=== PATIENT | male | born 1945 | race African-American/Black ===

== ENCOUNTER 2018-08-15 17:58 | Inpatient (IN) | payer MEDICAID, MEDICARE ==
[~2018-08-15] VITALS: Ht 172.7 cm; Wt 71.2 kg
--- NOTE | 2018-08-15 17:58 | NUR ---
PT NOAH FROM [facility] FOR FAILED ATTEMPT OF F/C REINSERTION, PT C/O OF ABD PAIN, PT AAOX2-3, -SOB, PT MONITOR, VSS, PENDING MD LEO
--- NOTE | 2018-08-15 18:41 | NUR ---
URINAL AT BEDSIDE, UNABLE TO PROVIDE SAMPLE AT THIS TIME.
[2018-08-15 18:42] LABS: BASOPHILS # (AUTO) 0.1 /CMM (0.0-0.2); BASOPHILS % (AUTO) 0.8 % (0.0-2.0); EOSINOPHILS % (AUTO) 0.4 % (0.0-6.0); HEMATOCRIT 38 % (39-51); HEMOGLOBIN 12.4 g/dL (13.5-17.5); LYMPHOCYTES # (AUTO) 1.4 /CMM (0.8-4.8); LYMPHOCYTES % (AUTO) 7.3 % (20.0-44.0); MEAN CORPUSCULAR HGB CONC 33 g/dl (31.0-36.0); MEAN CORPUSCULAR VOLUME 84 fL (80-96); MONOCYTES # (AUTO) 2.6 /CMM (0.1-1.30); MONOCYTES % (AUTO) 13.8 % (2.0-12.0); NEUTROPHILS # (AUTO) 14.6 /CMM (1.8-8.9); NEUTROPHILS % (AUTO) 77.7 % (43.0-81.0); PLATELET COUNT (AUTO) 312 /CMM (150-450); RED BLOOD CELL COUNT(AUTO) 4.57 MIL/uL (4.5-6.0); WHITE BLOOD COUNT (AUTO) 18.8 K/uL (4.3-11.0)
[2018-08-15 18:46] LABS: CALCIUM, SERUM 8.9 mg/dL (8.5-10.1); CARBON DIOXIDE 21 mmol/L (21-32); CHLORIDE 105 mmol/L (98-107); CREATININE 2.9 mg/dL (0.6-1.3); GLUCOSE 124 mg/dL (74-106); POTASSIUM 4.6 mmol/L (3.5-5.1); SODIUM SERUM 137 mmol/L (136-145); UREA NITROGEN, BLOOD 39 mg/dL (7-18)
[2018-08-15 18:52] LABS: ALANINE AMINOTRANSFERASE 38 U/L (12-78); ALKALINE PHOSPHATASE 110 U/L (46-116); ASPARTATE AMINOTRANSFERASE 45 U/L (15-37); BILIRUBIN,DIRECT 0.1 mg/dL (0.0-0.2); BILIRUBIN,TOTAL 0.3 mg/dL (0.2-1.0); LIPASE 172 U/L (73-393); TOTAL PROTEIN, SERUM 8.4 g/dL (6.4-8.2)
[2018-08-15] MEDS ORDERED: IV NS 0.9% 500 ML BAG IV ONE (20:30)
--- NOTE | 2018-08-15 21:26 | NUR ---
REPORT GIVEN TO RICHAR CHAVEZ.
[2018-08-15] MEDS ORDERED: BACL10TA PO (21:28)
[2018-08-15] MEDS ORDERED: IBUP-1953 PO (21:28)
[2018-08-15] MEDS ORDERED: ACET-73 PO (21:29)
[2018-08-15] MEDS ORDERED: ACETAMINOPHEN 325 MG TABLET PO PRN (21:30)
[2018-08-15] MEDS ORDERED: ONDANSETRON HCL/PF 4 MG/2 ML VIAL IVP PRN (21:30)
[2018-08-15] MEDS ORDERED: Z GUARD REMEDY 2 OZ OINT TP PRN (21:30)
[2018-08-15] MEDS ORDERED: MAGNESIUM HYDROXIDE 30 ML UDC PO PRN (21:30)
[2018-08-15] MEDS ORDERED: HYDROCODONE/APAP 5/325MG 1 EACH TABLET PO PRN (21:30)
[2018-08-15] MEDS ORDERED: CARV12.52 PO (21:30)
[2018-08-15] MEDS ORDERED: APIX2.5T PO (21:30)
[2018-08-15] MEDS ORDERED: MAG HYDROX/AL HYDROX/SIMETH 30 ML UDC PO PRN (21:30)
[2018-08-15] MEDS ORDERED: TAMS-12 PO (21:31)
[2018-08-15] MEDS ORDERED: LATA2.5D2 EACHEYE (21:31)
[2018-08-15] MEDS ORDERED: FINA5TAB3 PO (21:31)
[2018-08-15 21:32] LABS: APPEARANCE,URINE Cloudy (CLEAR); BILIRUBIN,URINE Negative (NEGATIVE); BLOOD, URINE Large Ery/uL (NEGATIVE); COLOR,URINE Dark (YELLOW); KETONES,URINE Negative (NEGATIVE); LEUKOCYTE ESTERASE ,URINE Small (NEGATIVE); NITRITE, URINE Positive (NEGATIVE); PROTEIN,URINE 100 mg/dl (NEGATIVE); UGLUCOSE Negative (NEGATIVE); UROBILINOGEN,URINE 0.2 EU/dL (0.2)
[2018-08-15] MEDS ORDERED: AMIO200T4 PO (21:32)
[2018-08-15] MEDS ORDERED: ASPI-605 PO (21:32)
[2018-08-15] MEDS ORDERED: DORZ10DR13 EACHEYE (21:32)
[2018-08-15 21:45] VITALS: BP 104/68
--- NOTE | 2018-08-15 21:45 | NUR ---
TELE/RN NOTES NEW ADMITTED PATIENT IS A 73 A[place]INESE MALE [facility] ER FOR ABDOMINAL PAIN DUE TO UNABLE TO INSERT HAHN, UPON ADMISSION DX OF AMS AND ARF. PATIENT ALERT, ORIENTED X3M RESPIRATIONS EVEN AND UNLABORED, SKIN WARM TO TOUCH AND INTACT, ABLE TO AMBULATE WITH SUPERVISION, DENIES PAIN, ON TELE AT NORMAL SINUS 65. USES URINAL, LEFT HAND IV GAUGE 20 PATENT, ADMITTING MD IS MD SHANE , POLST RECEIVED. TO CLARIFY THE NOTED CODE ORDER, BELONGINGS CHECK AND PRECIOUS OF $20 WAS KEPT IN NIGHT LOCKER FOR SAFETY PER PATIENT REQUEST, VITAL SIGN CHECK, BODY WEIGHT AT 157. WILL MONITOR AND PROVIDE CARE.
[2018-08-15 21:54] LABS: BACTERIA,URINE Few /HPF (None Seen); RBC,URINE TOO NUMEROUS TO COUN /HPF (0-2); SQUAMOUS EPITHELIAL CELL,UR Rare /HPF (None Seen); WBC,URINE TOO NUMEROUS TO COUN /HPF (0-3)
[2018-08-15 22:00] VITALS: BP 104/68
[2018-08-15] MEDS ORDERED: MEROPENEM 500 MG VIAL IV ONE (22:46)
[2018-08-15] MEDS: MEROPENEM 500 MG in IV NS 0.9% 50 ML IV SCH (22:55)
[2018-08-16] VITALS (7 sets, daily range): BP systolic 98–136; BP diastolic 60–91
[2018-08-16 00:23] LABS: THYROID STIMULATING HORMONE 2.982 uIU/mL (0.358-3.74)
[2018-08-16] MEDS: IV NS 0.9% 1,000 ML IV PRN ×2 (04:08→20:33)
--- NOTE | 2018-08-16 06:31 | NUR ---
309-2 PATIENT ABLE TO SLEEP DURING THE NIGT, RESPIRATIONS EVEN AND UNLABORED BED LOCKED,CALL LIGHTS WITHIN RANGE. DENIES PAIN.WILL CONTINUE TO MONITOR.
[2018-08-16 06:33] LABS: BASOPHILS # (AUTO) 0.1 /CMM (0.0-0.2); BASOPHILS % (AUTO) 0.7 % (0.0-2.0); EOSINOPHILS % (AUTO) 1.6 % (0.0-6.0); HEMATOCRIT 37 % (39-51); HEMOGLOBIN 11.9 g/dL (13.5-17.5); LYMPHOCYTES # (AUTO) 1.3 /CMM (0.8-4.8); LYMPHOCYTES % (AUTO) 9.8 % (20.0-44.0); MEAN CORPUSCULAR HGB CONC 33 g/dl (31.0-36.0); MEAN CORPUSCULAR VOLUME 84 fL (80-96); MONOCYTES # (AUTO) 2.4 /CMM (0.1-1.30); MONOCYTES % (AUTO) 17.9 % (2.0-12.0); NEUTROPHILS # (AUTO) 9.4 /CMM (1.8-8.9); PLATELET COUNT (AUTO) 297 /CMM (150-450); RED BLOOD CELL COUNT(AUTO) 4.37 MIL/uL (4.5-6.0); WHITE BLOOD COUNT (AUTO) 13.4 K/uL (4.3-11.0)
[2018-08-16 06:38] LABS: ALANINE AMINOTRANSFERASE 37 U/L (12-78); ALBUMIN 2.8 g/dL (3.4-5.0); ALKALINE PHOSPHATASE 102 U/L (46-116); ASPARTATE AMINOTRANSFERASE 37 U/L (15-37); BILIRUBIN,DIRECT 0.1 mg/dL (0.0-0.2); BILIRUBIN,TOTAL 0.3 mg/dL (0.2-1.0); CALCIUM, SERUM 8.8 mg/dL (8.5-10.1); CARBON DIOXIDE 22 mmol/L (21-32); CHLORIDE 106 mmol/L (98-107); CREATININE 3.1 mg/dL (0.6-1.3); GLUCOSE 104 mg/dL (74-106); MAGNESIUM 2.2 mg/dL (1.8-2.4); PHOSPHORUS 4.7 mg/dL (2.5-4.9); POTASSIUM 4.2 mmol/L (3.5-5.1); SODIUM SERUM 141 mmol/L (136-145); TOTAL PROTEIN, SERUM 7.8 g/dL (6.4-8.2); UREA NITROGEN, BLOOD 39 mg/dL (7-18)
[2018-08-16 06:46] LABS: CHOLESTEROL 126 mg/dL (<200); HDL CHOLESTEROL 30 mg/dL (40-60); LDL 75 mg/dL (0-99); THYROID STIMULATING HORMONE 2.184 uIU/mL (0.358-3.74); TRIGLYCERIDES 118 mg/dL (30-150)
--- NOTE | 2018-08-16 07:33 | NUR ---
MINING HELPER NOTES OPENING Patient received on room air, no sob noted. Patient a/o x4, patient denies pain at this time. Patient's left hand #20 IV remains free flowing. Patient lying down comfortably on his bed. Bed at the lowest setting, call light within reach.
[2018-08-16] MEDS ORDERED: ACET-868 PO ×2 (09:38)
[2018-08-16] MEDS: MEROPENEM 500 MG in IV NS 0.9% 50 ML IV SCH ×2 (11:19→22:06)
--- NOTE | 2018-08-16 18:08 | NUR ---
SAS ARCHITECT CLOSING NOTES Patient remains on room air, no sob noted. Patient denies pain at this time. A/O x4, able to walk to the restroom by himself. Good gait noted. Left hand #20 infusing with 75 mL per hour with NS. Bed at the lowest setting, call light within reach. Will give report to RN JOSE J for BRANDO bedside.
--- NOTE | 2018-08-16 20:06 | NUR ---
TELE/RN ON INITIAL ROUND [id number], PATIENT WAS AWAKE, ALERT, ORIENTED, COMFORTABLE, NO C/O PAIN, NO DISTRESS NOTED, CALL LIGHT IN REACH. WILL MONITOR.
[2018-08-17 04:27] VITALS: BP 123/53
--- NOTE | 2018-08-17 06:42 | NUR ---
TELE/RN PATIENT IS AWAKE, COMFORTABLE, NO C/O PAIN, NO DISTRESS NOTED, ALL NEEDS ATTENDED AT THIS TIME, WILL CONTINUE TO MONITOR.
[2018-08-17 08:00] VITALS: BP 117/74
--- NOTE | 2018-08-17 08:00 | NUR ---
tele fiberglass bonding machine tender: initial assessment received pt in bed awake, a/ox3. no c/o pain or any discomfort. pt expressed wanting to go home today, awaiting md terrazas. instructed to call for assistance. will continue to monitor.
--- NOTE | 2018-08-17 08:50 | NUR ---
m/s certified solid waste facility operator: notes chante finnegan ([facility]) here and reminded him re: home meds needs to be reconciled.
[2018-08-17] MEDS: MEROPENEM 500 MG in IV NS 0.9% 50 ML IV SCH (09:41)
--- NOTE | 2018-08-17 10:30 | NUR ---
tele supervisor sewing department: md visit seen and examined by chante ([facility]) with order to d'c back to sn[facility] today. pt aware and verbalized understanding. case management making arrangement.
--- NOTE | 2018-08-17 11:00 | NUR ---
tele die stamper: notes tele removed.
[2018-08-17] MEDS: IV NS 0.9% 1,000 ML IV PRN ×2 (11:30→22:53)
--- NOTE | 2018-08-17 11:55 | NUR ---
m/s tank cleaning supervisor: notes informed pt that his d'c planning today was cancelled due to bun/creatine results. pt for d'c planning for tomorrow.
--- NOTE | 2018-08-17 12:30 | NUR ---
m/s machine stripper: nephro consult seen by dr. carrera.
[2018-08-17] MEDS ORDERED: ACETAMINOPHEN 325 MG TABLET PO PRN ×2 (14:00)
[2018-08-17] MEDS ORDERED: IBUPROFEN 400 MG TABLET PO PRN (14:00)
--- NOTE | 2018-08-17 14:00 | NUR ---
m/s power shovel engineer: notes noted urine culture result: staphylococcus aureus. chante finnegan ([facility]) notified and made aware with order for id consult.
[2018-08-17] MEDS: FINASTERIDE (5 MG) 5 MG TABLET PO SCH (14:46)
[2018-08-17] MEDS: TAMSULOSIN 0.4 MG CAP.SR.24H PO SCH (14:47)
[2018-08-17] MEDS: ASPIRIN EC 81 MG TABLET.DR PO SCH (14:47)
[2018-08-17] MEDS: AMIODARONE HCL 200 MG TABLET PO SCH (14:49)
--- NOTE | 2018-08-17 15:00 | NUR ---
m/s helper metal hanging: id consult seen by anuradha ([facility]) at this time.
[2018-08-17 16:00] VITALS: BP 148/85
[2018-08-17] MEDS: TIMOLOL MAL/DORZOLAM HCL OPHTH 10 ML BOTTLE EACHEYE SCH (16:34)
[2018-08-17] MEDS: BACLOFEN (10 MG) 10 MG TABLET PO SCH (16:34)
[2018-08-17] MEDS: CARVEDILOL 12.5 MG TABLET PO SCH (16:34)
--- NOTE | 2018-08-17 17:00 | NUR ---
m/s dry cans back tender: notes resting comfortable in bed with no distress noted. will monitor.
[2018-08-17 17:19] LABS: BASOPHILS # (AUTO) 0.1 /CMM (0.0-0.2); BASOPHILS % (AUTO) 0.9 % (0.0-2.0); EOSINOPHILS % (AUTO) 2.9 % (0.0-6.0); HEMATOCRIT 36 % (39-51); HEMOGLOBIN 11.8 g/dL (13.5-17.5); LYMPHOCYTES # (AUTO) 1.8 /CMM (0.8-4.8); LYMPHOCYTES % (AUTO) 23.9 % (20.0-44.0); MEAN CORPUSCULAR HGB CONC 32 g/dl (31.0-36.0); MEAN CORPUSCULAR VOLUME 84 fL (80-96); MONOCYTES # (AUTO) 1.1 /CMM (0.1-1.30); MONOCYTES % (AUTO) 14.8 % (2.0-12.0); NEUTROPHILS # (AUTO) 4.4 /CMM (1.8-8.9); NEUTROPHILS % (AUTO) 57.5 % (43.0-81.0); PLATELET COUNT (AUTO) 360 /CMM (150-450); RED BLOOD CELL COUNT(AUTO) 4.36 MIL/uL (4.5-6.0); WHITE BLOOD COUNT (AUTO) 7.7 K/uL (4.3-11.0)
[2018-08-17] MEDS: APIXABAN 2.5 MG TABLET PO SCH (17:39)
[2018-08-17] MEDS ORDERED: FEE PK DOSING 1 MIN EA MC ONE (17:54)
[2018-08-17] MEDS ORDERED: VANCOMYCIN 1 GM in IV D5W 250ml IV ONE (18:00)
--- NOTE | 2018-08-17 19:00 | NUR ---
m/s bisque finisher: notes noted iv to left hand, leaking, removed. inserted new one to right hand, gauge #22. report given to perla (rn) for continuity of care.
[2018-08-17 20:00] VITALS: BP 131/76
--- NOTE | 2018-08-17 20:10 | NUR ---
MS/RN ON INITIAL SHIFT ROUND AT 1930, PATIENT WAS IN BED AOX4, COMFORTABLE, NO C/O PAIN, NO DISTRESS NOTED, CALL LIGHT IN REACH. WILL MONITOR.
[2018-08-17] MEDS: LATANOPROST EYE DROP 0.005% 2.5 ML BOTTLE EACHEYE SCH (21:12)
--- NOTE | 2018-08-18 00:20 | NUR ---
MS/RN PATIENT IS SLEEPING AT THIS TIME, AROUSABLE, APPEAR COMFORTABLE, NO SIGNS OF DISTRESS NOTED, CALL LIGHT IN REACH. WILL CONTINUE TO MONITOR.
--- NOTE | 2018-08-18 06:38 | NUR ---
MS/RN PATIENT IS SLEEPING AT THIS TIME, APPEAR COMFORTABLE, NO DISTRESS NOTED, CALL LIGHT IN REACH. ALL NEEDS ATTENDED AT THIS TIME, WILL CONTINUE TO MONITOR.
[2018-08-18] MEDS: IV NS 0.9% 1,000 ML IV PRN ×3 (06:40→23:01)
[2018-08-18 08:00] VITALS: BP 141/81
--- NOTE | 2018-08-18 08:02 | NUR ---
RN MS OPENING NOTES Patient remains on room air, no sob noted, patient lying down comfortably on bed. IV fluid flowing unobstructed at left hand #20. Patient remains a/o x4 and denies pain at this time. Bed at the lowest setting, call light within reach.
[2018-08-18] MEDS: TAMSULOSIN 0.4 MG CAP.SR.24H PO SCH (08:23)
[2018-08-18] MEDS: ASPIRIN EC 81 MG TABLET.DR PO SCH (08:23)
[2018-08-18] MEDS: AMIODARONE HCL 200 MG TABLET PO SCH (08:23)
[2018-08-18] MEDS: FINASTERIDE (5 MG) 5 MG TABLET PO SCH (08:27)
[2018-08-18] MEDS: TIMOLOL MAL/DORZOLAM HCL OPHTH 10 ML BOTTLE EACHEYE SCH ×2 (08:27→16:58)
[2018-08-18] MEDS: CARVEDILOL 12.5 MG TABLET PO SCH ×2 (08:27→16:58)
[2018-08-18] MEDS: BACLOFEN (10 MG) 10 MG TABLET PO SCH ×2 (08:27→16:58)
[2018-08-18] MEDS: APIXABAN 2.5 MG TABLET PO SCH ×2 (08:28→16:59)
[2018-08-18 08:46] LABS: CALCIUM, SERUM 8.2 mg/dL (8.5-10.1); CARBON DIOXIDE 19 mmol/L (21-32); CHLORIDE 108 mmol/L (98-107); CREATININE 1.4 mg/dL (0.6-1.3); GLUCOSE 92 mg/dL (74-106); POTASSIUM 4.5 mmol/L (3.5-5.1); SODIUM SERUM 140 mmol/L (136-145); UREA NITROGEN, BLOOD 18 mg/dL (7-18)
[2018-08-18 16:00] VITALS: BP 127/76
--- NOTE | 2018-08-18 17:10 | NUR ---
RN MS NOTES Patient positive for MRSA via urine, per [facility]'s lab.
--- NOTE | 2018-08-18 17:54 | NUR ---
RN MS CLOSING NOTES Patient remains on mi air, no sob noted. Patient remains a/o x3, able to ambulate to the restroom. Remains with left hand #20, 125 mL per hour of normal saline. patient's medication given, no concerns from patient. Bed at the lowest setting, call light within reach, will give report to NOC rn for BRANDO bedside.
--- NOTE | 2018-08-18 19:30 | NUR ---
MS/RN RECEIVE PATIENT AWAKE, ALERT, ORIENTED, COMFORTABLE, NO C/O PAIN, NO DISTRESS NOTED, CALL LIGHT IN REACH. WILL MONITOR.
[2018-08-18 20:00] VITALS: BP 120/71
[2018-08-18] MEDS: VANCOMYCIN 1 GM in IV D5W 250 ML IV SCH (21:52)
[2018-08-18] MEDS: LATANOPROST EYE DROP 0.005% 2.5 ML BOTTLE EACHEYE SCH (21:59)
--- NOTE | 2018-08-18 23:00 | NUR ---
MS RN NOTES Received report from AKTHY Waggoner for continuity of care. Patient sleeping in bed, comfortable. Breathing even and unlabored. Not in any distress. Peripheral IV infusing at 125mL/hr. Safety measures in place. Will continue to monitor accordingly
--- NOTE | 2018-08-18 23:05 | NUR ---
MS/RN PATIENT IS AWAKE, NO CHANGE IN CONDITION. ENDORSED TO NEXT RN FOR CONTINUITY OF CARE.
[2018-08-19] MEDS ORDERED: VANCOMYCIN HCL 0.75 GM in IV D5W 250 ML IV SCH (06:00)
[2018-08-19] MEDS: IV NS 0.9% 1,000 ML IV PRN ×2 (06:01→16:24)
[2018-08-19 06:23] LABS: BASOPHILS # (AUTO) 0.1 /CMM (0.0-0.2); BASOPHILS % (AUTO) 0.8 % (0.0-2.0); EOSINOPHILS % (AUTO) 2.3 % (0.0-6.0); HEMATOCRIT 35 % (39-51); HEMOGLOBIN 11.4 g/dL (13.5-17.5); LYMPHOCYTES # (AUTO) 1.8 /CMM (0.8-4.8); LYMPHOCYTES % (AUTO) 19.7 % (20.0-44.0); MEAN CORPUSCULAR HGB CONC 33 g/dl (31.0-36.0); MEAN CORPUSCULAR VOLUME 83 fL (80-96); MONOCYTES % (AUTO) 10.7 % (2.0-12.0); NEUTROPHILS # (AUTO) 6.2 /CMM (1.8-8.9); NEUTROPHILS % (AUTO) 66.5 % (43.0-81.0); PLATELET COUNT (AUTO) 383 /CMM (150-450); RED BLOOD CELL COUNT(AUTO) 4.23 MIL/uL (4.5-6.0); WHITE BLOOD COUNT (AUTO) 9.4 K/uL (4.3-11.0)
[2018-08-19 06:40] LABS: CALCIUM, SERUM 8.4 mg/dL (8.5-10.1); CARBON DIOXIDE 21 mmol/L (21-32); CHLORIDE 108 mmol/L (98-107); CREATININE 1.3 mg/dL (0.6-1.3); GLUCOSE 95 mg/dL (74-106); SODIUM SERUM 142 mmol/L (136-145); UREA NITROGEN, BLOOD 14 mg/dL (7-18)
--- NOTE | 2018-08-19 06:50 | NUR ---
MS RN CLOSING NOTES Patient in bed, sleeping but easily woken. Breathing even and unlabored. Not in any distress, on room air. No complaints at this time. Peripheral IV infusing at 125mL/hr. No acute changes overnight. All needs attended. Safety measures in place. Will endorse BRANDO to oncoming RN
--- NOTE | 2018-08-19 07:50 | NUR ---
M/S RN NOTES PATIENT AWAKE IN BED, NO RESPIRATORY DISTRESS NOTED, NO C/O PAIN AT THIS TIME. SKIN WARM TO TOUCH. IVF OF NS INFUSING AT 125ML/HR ON THE RT HAND #20G, INTACT AND PATENT, NO REDNESS, NO INFILTRATION NOTED. PATIENT'S NEEDS ATTENDED, BED ON LOWEST LOCKED POSITION, CALL LIGHT WITHIN REACH. WILL CONTINUE TO MONITOR.
[2018-08-19 08:30] VITALS: BP 146/86
[2018-08-19] MEDS: BACLOFEN (10 MG) 10 MG TABLET PO SCH ×2 (09:38→17:35)
[2018-08-19] MEDS: TAMSULOSIN 0.4 MG CAP.SR.24H PO SCH (09:38)
[2018-08-19] MEDS: ASPIRIN EC 81 MG TABLET.DR PO SCH (09:38)
[2018-08-19] MEDS: FINASTERIDE (5 MG) 5 MG TABLET PO SCH (09:39)
[2018-08-19] MEDS: AMIODARONE HCL 200 MG TABLET PO SCH (09:39)
[2018-08-19] MEDS: CARVEDILOL 12.5 MG TABLET PO SCH ×2 (09:39→17:36)
[2018-08-19] MEDS: APIXABAN 2.5 MG TABLET PO SCH ×2 (09:59→17:39)
[2018-08-19] MEDS: TIMOLOL MAL/DORZOLAM HCL OPHTH 10 ML BOTTLE EACHEYE SCH ×2 (09:59→18:10)
[2018-08-19 16:00] VITALS: BP 143/84
--- NOTE | 2018-08-19 19:00 | NUR ---
M/S RN NOTES PATIENT AWAKE, LYING IN BED, NO RESPIRATORY DISTRESS NOTED, NO C/O PAIN AT THIS TIME. SKIN WARM TO TOUCH. IVF OF NS INFUSING AT 125ML/HR ON THE RT HAND #20G, INTACT AND PATENT. PATIENT'S NEEDS ATTENDED. BED ON LOWEST LOCKED POSITION, CALL LIGHT WITHIN REACH. WILL ENDORSE TO ONCOMING NURSE.
--- NOTE | 2018-08-19 19:05 | NUR ---
RN MS OPENING NOTES RECEIVED PATIENT IN BED AWAKE ALERT AND ORIENTED X 4, RESPIRATIONS EVEN AND UNLABORED WITH EQUAL RISE AND FALL OF CHEST, DENIES ANY PAIN OR DISCOMFORT AT THIS TIME, URINAL AT BEDSIDE WITHIN REACH, IV SITE TO RIGHT HAND #20G INTACT AND PATENT, IVF RUNNING ORDERED, NO REDNESS, NO INFILTRATION PRESENT, ORIENTED TO STAFF AND CALL LIGHT AND KEPT WITHIN REACH, SAFETY PRECAUTIONS IN PLACE, LOW BED AND LOCKED, MADE PATIENT AWARE OF MONDAY PICTURES, ASKED PATIENT IS HE HAS ANY WOUND STATES " NO", OFFERED IF I CAN DO BODY ASSESSMENT , REFUSED STATES " I DONT HAVE ANY WOUNDS", REFERRED BACK TO CHART NO PREVIOUS PICTURES NOTED, ALL NEEDS ATTENDED AT THIS TIME, FLUIDS AND BLANKETS OFFERED, WILL CONTINUE TO MONITOR AND ATTEND TO NEEDS.
[2018-08-19 19:58] VITALS: BP 130/77
[2018-08-19 20:00] VITALS: BP 130/77
[2018-08-19] MEDS: VANCOMYCIN 1 GM in IV D5W 250 ML IV SCH (21:26)
[2018-08-19] MEDS: LATANOPROST EYE DROP 0.005% 2.5 ML BOTTLE EACHEYE SCH (21:27)
[2018-08-20] MEDS: IV NS 0.9% 1,000 ML IV PRN ×2 (03:05→16:35)
[2018-08-20 06:49] LABS: CALCIUM, SERUM 8.3 mg/dL (8.5-10.1); CARBON DIOXIDE 21 mmol/L (21-32); CHLORIDE 109 mmol/L (98-107); CREATININE 1.2 mg/dL (0.6-1.3); GLUCOSE 99 mg/dL (74-106); SODIUM SERUM 140 mmol/L (136-145); UREA NITROGEN, BLOOD 11 mg/dL (7-18)
--- NOTE | 2018-08-20 07:00 | NUR ---
RN MS CLOSING NOTES PATIENT IN BED AWAKE ALERT AND ORIENTED X 4, RESPIRATIONS EVEN AND UNLABORED WITH EQUAL RISE AND FALL OF CHEST, DENIES ANY PAIN OR DISCOMFORT AT THIS TIME, URINAL AT BEDSIDE WITHIN REACH, IV SITE TO LEFT FA #20G INTACT AND PATENT, IVF RUNNING ORDERED, NO REDNESS, NO INFILTRATION PRESENT, CALL LIGHT KEPT WITHIN REACH, SAFETY PRECAUTIONS IN PLACE, LOW BED AND LOCKED, ALL NEEDS ATTENDED AT THIS TIME, FLUIDS AND BLANKETS OFFERED, WILL CONTINUE TO MONITOR AND ATTEND TO NEEDS AND ENDORSE TO NEXT SHIFT.
--- NOTE | 2018-08-20 07:20 | NUR ---
MS/RN OPENING NOTE THE PATIENT IS RECEIVED IN BED. ALERT AND ORIENTED TO SELF. ABLE TO MAKE NEEDS KNOWN WITH CLEAR SPEECH. IN ROOM AIR AND DENIES SOB. RESPIRATION REGULAR AND UNLABORED. DENIES PAIN. THE PATIENT IN NO APPARENT DISTRESS. RFA G 20 PATENT AND NORMAL SALINE INFUSING AT 125ML/HR AND NO S/S INFILTRATION NOTED. BED LOW AND LOCKED. SIDE RAILS UP X3. CALL LIGHT WITHIN REACH. WILL CONTINUE TO MONITOR.
[2018-08-20 08:00] VITALS: BP 134/78
[2018-08-20 08:39] VITALS: BP_SYST 134; BP_SYST 143; BP_DIAS 63; BP_DIAS 78
[2018-08-20] MEDS: FINASTERIDE (5 MG) 5 MG TABLET PO SCH (08:57)
[2018-08-20] MEDS: BACLOFEN (10 MG) 10 MG TABLET PO SCH ×2 (08:57→16:35)
[2018-08-20] MEDS: ASPIRIN EC 81 MG TABLET.DR PO SCH (08:57)
[2018-08-20] MEDS: TAMSULOSIN 0.4 MG CAP.SR.24H PO SCH (08:57)
[2018-08-20] MEDS: AMIODARONE HCL 200 MG TABLET PO SCH (08:58)
[2018-08-20] MEDS: TIMOLOL MAL/DORZOLAM HCL OPHTH 10 ML BOTTLE EACHEYE SCH ×2 (08:59→16:36)
[2018-08-20] MEDS: APIXABAN 2.5 MG TABLET PO SCH ×2 (09:32→18:31)
[2018-08-20] MEDS: CARVEDILOL 12.5 MG TABLET PO SCH ×2 (09:32→16:36)
[2018-08-20] MEDS: ACETYLCYSTEINE 10% 3,000 MG/30 ML VIAL PO SCH ×2 (11:40→16:36)
--- NOTE | 2018-08-20 13:00 | NUR ---
MS/RN NOTE RADIOLOGY DEPT IS MADE AWARE THAT CONSENT FOR CT IS SIGNED.
[2018-08-20 16:05] VITALS: BP 140/76
--- NOTE | 2018-08-20 18:37 | NUR ---
MS/RN NOTE THE PATIENT ALERT AND ORIENTED X1. ABLE TO MAKE NEEDS KNOWN VERBALLY. DENIES PAIN. IN ROOM AIR AND SATURATION IS AT 97%. DENIES SOB. RESPIRATION REGULAR AND UNLABORED. RFA G 20 PATENT AND NORMAL SALINE INFUSING AT 125 ML/HR AND NO S/S INFILTRATION NOTED. BED LOW AND LOCKED. SIDE RAILS UP X3. CALL LIGHT WITHIN REACH. WILL ENDORSE TO MANAGER FIELD INVESTIGATIONS.
--- NOTE | 2018-08-20 19:10 | NUR ---
MS/RN NOTES RECEIVED PT. LYING IN BED RESTING. PT. IS EASILY AROUSABLE TO NAME. PT. IS AWAKE, ALERT AND ORIENTED X 1-2. BREATHING EVEN AND UNLABORED ON ROOM AIR. NO SOB, RESPIRATORY DISTRESS OR COMPLAINTS OF PAIN NOTED AT THIS TIME. PT. WITH RIGHT FOREARM 20 GAUGE PERIPHERAL IV PRESENT, PATENT AND INTACT ADMINISTERING TO PT. IV NS @ 125 ML/HR. BED LOCKED AND IN LOWEST POSITION, SIDE RAILS UP X3, BED ALARM ON, CALL LIGHT WITHIN REACH, WILL CONTINUE TO MONITOR.
[2018-08-20 20:13] VITALS: BP 133/75
[2018-08-20] MEDS: LATANOPROST EYE DROP 0.005% 2.5 ML BOTTLE EACHEYE SCH (21:28)
[2018-08-20] MEDS: VANCOMYCIN 1 GM in IV D5W 250 ML IV SCH (21:28)
[2018-08-21] MEDS: IV NS 0.9% 1,000 ML IV PRN ×2 (03:13→22:50)
--- NOTE | 2018-08-21 06:39 | NUR ---
MS/RN NOTES PT. IS LYING IN BED RESTING. BREATHING EVEN AND UNLABORED ON ROOM AIR. NO SOB, RESPIRATORY DISTRESS OR COMPLAINTS OF PAIN NOTED AT THIS TIME. PT. WITH RIGHT FOREARM 20 GAUGE PERIPHERAL IV PRESENT, PATENT AND INTACT ADMINISTERING TO PT. IV NS @ 125 ML/HR. ALL PT. NEEDS MET. PT. ENCOURAGED AND ASSISTED TO TURN AND REPOSITION Q2H AND NEEDED. BED LOCKED AND IN LOWEST POSITION, SIDE RAILS UP X3, BED ALARM ON, CALL LIGHT WITHIN REACH, WILL ENDORSE TO DAYSHIFT NURSE FOR CONTINUITY OF CARE.
[2018-08-21 08:00] VITALS: BP 153/89
--- NOTE | 2018-08-21 08:00 | NUR ---
ms rn received on bed, awake,alert, not in any form of distress, respirations even and unlabored,no sob noted, lungs are diminish, abdomen soft,positive bowel sounds, denies pain at this time,all needs attended.
[2018-08-21 08:04] LABS: BASOPHILS % (AUTO) 0.3 % (0.0-2.0); EOSINOPHILS % (AUTO) 2.2 % (0.0-6.0); HEMATOCRIT 35 % (39-51); HEMOGLOBIN 11.5 g/dL (13.5-17.5); LYMPHOCYTES # (AUTO) 1.8 /CMM (0.8-4.8); LYMPHOCYTES % (AUTO) 20.4 % (20.0-44.0); MEAN CORPUSCULAR HGB CONC 33 g/dl (31.0-36.0); MEAN CORPUSCULAR VOLUME 83 fL (80-96); MONOCYTES % (AUTO) 10.8 % (2.0-12.0); NEUTROPHILS # (AUTO) 5.9 /CMM (1.8-8.9); NEUTROPHILS % (AUTO) 66.3 % (43.0-81.0); PLATELET COUNT (AUTO) 408 /CMM (150-450); RED BLOOD CELL COUNT(AUTO) 4.22 MIL/uL (4.5-6.0); WHITE BLOOD COUNT (AUTO) 8.9 K/uL (4.3-11.0)
[2018-08-21 08:17] LABS: CALCIUM, SERUM 8.2 mg/dL (8.5-10.1); CARBON DIOXIDE 20 mmol/L (21-32); CHLORIDE 108 mmol/L (98-107); CREATININE 1.3 mg/dL (0.6-1.3); GLUCOSE 95 mg/dL (74-106); POTASSIUM 3.8 mmol/L (3.5-5.1); SODIUM SERUM 140 mmol/L (136-145); UREA NITROGEN, BLOOD 10 mg/dL (7-18)
[2018-08-21 08:28] LABS: IRON, SERUM 32 ug/dl (50-175); TOTAL IRON BINDING CAPACITY 224 ug/dl (250-450)
[2018-08-21 08:32] LABS: FERRITIN 93 ng/mL (8-388)
[2018-08-21] MEDS: CARVEDILOL 12.5 MG TABLET PO SCH ×2 (09:00→18:30)
[2018-08-21] MEDS: ACETYLCYSTEINE 10% 3,000 MG/30 ML VIAL PO SCH ×2 (09:00→18:30)
[2018-08-21] MEDS: APIXABAN 2.5 MG TABLET PO SCH ×2 (09:00→18:31)
[2018-08-21] MEDS: TIMOLOL MAL/DORZOLAM HCL OPHTH 10 ML BOTTLE EACHEYE SCH ×2 (09:00→18:28)
[2018-08-21] MEDS: BACLOFEN (10 MG) 10 MG TABLET PO SCH ×2 (09:00→18:28)
--- NOTE | 2018-08-21 09:00 | NUR ---
ms rn held meds at this time, patient will have ct head, abdomen, pelvis w/ contras.
--- NOTE | 2018-08-21 11:00 | NUR ---
MS RN WENT DOWN FOR CTA
[2018-08-21] MEDS ORDERED: IV NS 0.9% 250 ML IV ONE (11:40)
[2018-08-21] MEDS ORDERED: IOHEXOL-300 100 ML VIAL IV ONE (11:40)
[2018-08-21] MEDS ORDERED: CT SWABBABLE VALVE TRANS SET 1 EA INFUS.SET MC ONE (11:40)
[2018-08-21] MEDS: AMIODARONE HCL 200 MG TABLET PO SCH (12:08)
[2018-08-21] MEDS: FINASTERIDE (5 MG) 5 MG TABLET PO SCH (12:08)
[2018-08-21] MEDS: TAMSULOSIN 0.4 MG CAP.SR.24H PO SCH (12:08)
[2018-08-21] MEDS: ASPIRIN EC 81 MG TABLET.DR PO SCH (12:08)
[2018-08-21 16:00] VITALS: BP 153/80
[2018-08-21] MEDS: VANCOMYCIN 1 GM in IV D5W 250 ML IV SCH (18:29)
--- NOTE | 2018-08-21 19:00 | NUR ---
MS RN ON BED, ,NO DISTRESS NOTED.
[2018-08-21 20:00] VITALS: BP 135/81
--- NOTE | 2018-08-21 20:00 | NUR ---
MS/RN OPENING NOTES RECEIVED PATIENT IN BED, AWAKE. RESTING COMFORTABLY IN BED, HAD SNACKS, AND FLUIDS, RESPIRATIONS EVEN AND UNLABORED, ABLE TO TURN AND REPOSITION INDEPENDENTLY , INSTRUCTED TO CALL FOR ASSISTANCE FOR SAFETY. BED LOCKED, CALL LIGHTS WITHIN REACH, WILL MONITOR. RECEIVED ENDORSEMENT FROM AM RN FOR BRANDO.
[2018-08-21] MEDS: LATANOPROST EYE DROP 0.005% 2.5 ML BOTTLE EACHEYE SCH (21:12)
--- NOTE | 2018-08-22 06:03 | NUR ---
MS/RN NOTES PATIENT IV SITE LEAKING, REMOVED AND PATIENT REFUSED TO HAVE IT REINSERTED AT THIS TIME WILL FOLLOW UP IN AM, PATIENT REPORTED THAT HE WILL SOON BE DISCHARGE TO HOME TODAY AND BEEN DRINKING ENOUGH FLUIDS.
--- NOTE | 2018-08-22 07:29 | NUR ---
309-2 MS/RN NOTES PATIENT ON CONTACT ISOLATION, ABLE TO DO SELF CARE, ALERT, ORIENTED X3, OFFERED AND PROVIDED FLUIDS AND SNACKS, ABLE TO SLEEP DURING THE NIGHT, COMPLIANT TO CARE, BED LOCKED, CALL LIGHTS WITHIN REACH, WILL MONITOR AND ENDORSE TO AM RN FOR BRANDO.
[2018-08-22 08:00] VITALS: BP 143/77
--- NOTE | 2018-08-22 08:00 | NUR ---
MS RN RECEIVED ON BED, AWAKE,ALERT,ORIENTED X2,NOT IN ANY FORM OF DISTRESS, [id number] EVEN AND UNLABORED,NO SOB NOTED, LUNGS ARE CLEAR,ABDOMEN SOFT,POSITIVE BOWEL SOUNDS,DENIES PAIN AT THIS TIME, WILL MONITOR PATIENT'S CONDITION.
[2018-08-22 08:03] LABS: BASOPHILS # (AUTO) 0.1 /CMM (0.0-0.2); BASOPHILS % (AUTO) 1.5 % (0.0-2.0); EOSINOPHILS % (AUTO) 2.7 % (0.0-6.0); HEMATOCRIT 34 % (39-51); HEMOGLOBIN 11.1 g/dL (13.5-17.5); LYMPHOCYTES # (AUTO) 1.7 /CMM (0.8-4.8); LYMPHOCYTES % (AUTO) 23.3 % (20.0-44.0); MEAN CORPUSCULAR HGB CONC 33 g/dl (31.0-36.0); MEAN CORPUSCULAR VOLUME 83 fL (80-96); MONOCYTES # (AUTO) 0.9 /CMM (0.1-1.30); MONOCYTES % (AUTO) 12.1 % (2.0-12.0); NEUTROPHILS # (AUTO) 4.4 /CMM (1.8-8.9); NEUTROPHILS % (AUTO) 60.4 % (43.0-81.0); PLATELET COUNT (AUTO) 445 /CMM (150-450); WHITE BLOOD COUNT (AUTO) 7.3 K/uL (4.3-11.0)
[2018-08-22 08:19] LABS: ALANINE AMINOTRANSFERASE 15 U/L (12-78); ALBUMIN 2.3 g/dL (3.4-5.0); ALKALINE PHOSPHATASE 77 U/L (46-116); ASPARTATE AMINOTRANSFERASE 16 U/L (15-37); BILIRUBIN,TOTAL 0.2 mg/dL (0.2-1.0); CALCIUM, SERUM 8.2 mg/dL (8.5-10.1); CARBON DIOXIDE 22 mmol/L (21-32); CHLORIDE 108 mmol/L (98-107); CREATININE 1.4 mg/dL (0.6-1.3); GLUCOSE 91 mg/dL (74-106); MAGNESIUM 1.5 mg/dL (1.8-2.4); PHOSPHORUS 3.7 mg/dL (2.5-4.9); POTASSIUM 3.7 mmol/L (3.5-5.1); SODIUM SERUM 140 mmol/L (136-145); UREA NITROGEN, BLOOD 13 mg/dL (7-18)
--- NOTE | 2018-08-22 08:30 | NUR ---
MS CHAVEZ WAS SEEN BY SHOLA Tate/ ORDERS MADE AND CARRIED OUT.
[2018-08-22 08:33] LABS: FREE PSA 0.18 ng/mL (0.00-45); PROSTATE SPECIFIC ANTIGEN SCR 1.23 ng/mL (0.00-4.00)
[2018-08-22] MEDS ORDERED: FERROUS SULFATE (325 MG) 325 MG/TAB TABLET PO SCH (09:00)
[2018-08-22] MEDS: ASPIRIN EC 81 MG TABLET.DR PO SCH (09:14)
[2018-08-22] MEDS: TAMSULOSIN 0.4 MG CAP.SR.24H PO SCH (09:14)
[2018-08-22] MEDS: CARVEDILOL 12.5 MG TABLET PO SCH (09:15)
[2018-08-22] MEDS: BACLOFEN (10 MG) 10 MG TABLET PO SCH (09:15)
[2018-08-22 09:16] VITALS: BP 143/77
[2018-08-22] MEDS: AMIODARONE HCL 200 MG TABLET PO SCH (09:16)
[2018-08-22] MEDS: FINASTERIDE (5 MG) 5 MG TABLET PO SCH (09:19)
[2018-08-22] MEDS: APIXABAN 2.5 MG TABLET PO SCH (09:21)
[2018-08-22] MEDS: TIMOLOL MAL/DORZOLAM HCL OPHTH 10 ML BOTTLE EACHEYE SCH (09:34)
[2018-08-22] MEDS: Magnesium 1GM/D5W 100ML PREMIX 100 ML IV SCH ×2 (11:43→13:45)
[2018-08-22] MEDS: VANCOMYCIN 1 GM in IV D5W 250 ML IV SCH (11:44)
--- NOTE | 2018-08-22 12:00 | NUR ---
MS RN NEW IV INSERTED AT RIGHT HABD W/ [facility] RETURN.
[2018-08-22] MEDS ORDERED: ACETAMINOPHEN 325 MG TABLET PO PRN (14:00)
--- NOTE | 2018-08-22 16:00 | NUR ---
ms rn patient transferred to sn[facility] via ambulance, report given to Sarabjit willingham.all needs attended.
== END 2018-08-22 15:30 | DRG 469 ==
LOC: ER 18:10 → TELE 20:53 → MED 08-17 11:40
PROVIDERS: ADMIT Nurse Practitioner Acute Care; ATTEND Nurse Practitioner Acute Care
DX: N17.0 Acute kidney failure with tubular necrosis (principal); G93.41 Metabolic encephalopathy; E44.0 Moderate protein-calorie malnutrition; D68.59 Other primary thrombophilia; I48.91 Unspecified atrial fibrillation; E83.42 Hypomagnesemia; I13.0 Hypertensive heart and chronic kidney disease with heart failure and stage 1 through stage 4 chronic kidney disease, or unspecified chronic kidney disease; I50.9 Heart failure, unspecified; D63.8 Anemia in other chronic diseases classified elsewhere; B95.61 Methicillin susceptible Staphylococcus aureus infection as the cause of diseases classified elsewhere; N18.9 Chronic kidney disease, unspecified; N39.0 Urinary tract infection, site not specified; Z79.899 Other long term (current) drug therapy; N28.89 Other specified disorders of kidney and ureter; N40.0 Benign prostatic hyperplasia without lower urinary tract symptoms; Z90.5 Acquired absence of kidney; Z87.891 Personal history of nicotine dependence; Z87.440 Personal history of urinary (tract) infections; Z86.19 Personal history of other infectious and parasitic diseases; R43.0 Anosmia; W34.00XS Accidental discharge from unspecified firearms or gun, sequela
CPT/HCPCS: 36415; 71045-TC; 71260-TC; 76700-TC; 76856-TC; 80048-TC; 80053-TC; 80061-TC; 80076-TC; 80202-TC; 81000-TC; 82728-TC; 83540-TC; 83605-TC; 83690-TC; 83735-TC; 84100-TC; 84153-TC; 84154-TC; 84443-TC; 84484-TC; 85025-TC; 85730-TC; 87040-TC; 87081-TC; 87086-TC; A4216; G0378; J2185; J3370; J3475; J7030; J7050; J7060; Q9967